=== PATIENT | female | born 2000 | race African-American/Black ===

== ENCOUNTER 2020-11-24 09:11 | Outpatient (REF) | payer OTHER, SELFPAY ==
[2020-11-24 12:24] LABS: HCG Quantitative < 2 mIU/mL; Thyroid Stimulating Hormone 2.67 uIU/mL (0.32-4.0)
[2020-11-25 09:41] LABS: DHEA Sulfate 103 mcg/dL (51-321)
[2020-11-25 10:31] LABS: Prolactin 21.4 ng/mL
[2020-11-30 11:56] LABS: Testosterone, Free 3.1 pg/mL (0.1-6.4); Testosterone, Total 25 ng/dL (2-45)
== END 2020-11-24 09:12 | disposition home or self-care (01) ==
LOC: HO.LAB 09:11
PROVIDERS: PCP Nurse Practitioner Family; Visit Provider Advanced Practice Midwife
DX: Z01.419 Encounter for gynecological examination (general) (routine) without abnormal findings (principal); N92.6 Irregular menstruation, unspecified; L68.0 Hirsutism; N94.6 Dysmenorrhea, unspecified; L70.9 Acne, unspecified
CPT/HCPCS: 36415; 82627; 83498; 84146; 84402; 84403; 84443; 84702

== ENCOUNTER 2020-12-15 14:01 | Outpatient (REF) | payer OTHER, SELFPAY ==
--- NOTE | ~2020-12-15 | US_ITS ---
EXAMINATION: US PELVIS CLINICAL INFORMATION: Irregular menstruation. COMPARISON: None TECHNIQUE: Transabdominal pelvic ultrasound. Patient refused transvaginal exam. FINDINGS: The uterus is anteverted and measures 8.9 x 5.5 x 6.9 cm. The endometrium is thickened. The double wall endometrial thickness is 22 mm. The uterus is smooth in contour and has normal myometrial echogenicity. No visible fibroid. The ovaries are normal-appearing. Right ovary measures 3.3 x 1.7 x 2.2 cm. Left ovary measures 4.3 x 1.2 x 2.5 cm. There is no fluid in the pelvis. US/US pelvic complete IMPRESSION: Thickened endometrium measuring 22 mm. Otherwise unremarkable exam.
== END 2020-12-15 14:02 | disposition home or self-care (01) ==
LOC: HO.US 14:01
PROVIDERS: Visit Provider Advanced Practice Midwife
DX: N92.6 Irregular menstruation, unspecified (principal); L68.0 Hirsutism; N94.6 Dysmenorrhea, unspecified
CPT/HCPCS: 76856